=== PATIENT | male | born 1980 | race Caucasian/White ===

== ENCOUNTER 2021-06-17 15:28 | Emergency (ER) | payer OTHER ==
[~2021-06-17] VITALS: Ht 182.9 cm; Wt 118.1 kg
[2021-06-17] MEDS ORDERED: LIDOCAINE 1% Multi-Dose 20 ML VIAL. ONE (15:59)
[2021-06-17] MEDS ORDERED: LIDOCAINE 1% PF 30 ML VIAL. INJ ONE (16:00)
--- NOTE | 2021-06-17 16:02 | PHYS DOC ---
Adult General Chief Complaint Chief Complaint: LACERATION/AVULSION HPI HPI Patient is a 40-year-old male patient who presents to the ED today with a right eyebrow laceration. Patient states he was playing football with glasses on, he states he ran into his friends elbow with his head breaking his glasses. Denies any loss of consciousness or neck pain. Tetanus up-to-date. (SRIDHAR MIR APRN) Review of Systems Review of Systems Constitutional: Denies fever or chills [] Eyes: Denies change in visual acuity, redness, or eye pain [] Musculoskeletal: Denies back pain or joint pain [] Integument: Reports left eyebrow laceration Neurologic: Denies headache, focal weakness or sensory changes [] All other systems were reviewed and found to be within normal limits, except as documented in this note. (SRIDHAR MIR APRN) Current Medications Current Medications Current Medications Medications (Trade) Dose Ordered Sig/Florentin Start Time Stop Time Status Last Admin Dose Admin Lidocaine HCl 20 ml STK-MED ONCE 06/17/21 15:59 06/17/21 15:59 DC Lidocaine HCl (Lidocaine 1% Pf) 30 ml 1X ONCE 06/17/21 16:00 06/17/21 16:01 UNV (SRIDHAR MIR APRN) Physical Exam Physical Exam Constitutional: Well developed, well nourished, no acute distress, non-toxic appearance. [] Skin: Right upper eyebrow with a laceration approximately 4 cm long, bleeding is well controlled, no eye involvement. Back: No tenderness, no CVA tenderness. [] Extremities: No tenderness, no cyanosis, no clubbing, ROM intact, no edema. [] Neurologic: Alert and oriented X 3, normal motor function, normal sensory function, no focal deficits noted. Cranial nerves II through XII intact Psychologic: Affect normal, judgement normal, mood normal. [] (SRIDHAR MIR APRN) EKG EKG [] (SRIDHAR MIR APRN) Radiology/Procedures Radiology/Procedures Laceration/Wound Repair Laceration/Wound Repair : [] Wound Location: Left eyebrow Wound's Depth, Shape: Horizontal Wound Length (cm): Approximately 4 cm Wound Explored: clean Irrigated w/ Saline (ccs): 20 Betadine Prep?: Y Anesthesia: 1% of lidocaine Volume Anesthetic (ccs): Approximately 3 cc Wound Repaired With: Dissolvable gut Suture Size/Type: 4.0/interrupted sutures Number of Sutures: 8 Progress : Wound was left open to air (SRIDHAR MIR CRAFT RECRUITER) Heart Score C/O Chest Pain: N/A Risk Factors: Risk Factors: DM, Current or recent (<one month) smoker, HTN, HLP, family history of CAD, obesity. Risk Scores: Risk Factors: DM, Current or recent (<one month) smoker, HTN, HLP, family history of CAD, obesity. (SRIDHAR MIR CRAFT RECRUITER) Course & Med Decision Making Course & Med Decision Making Pertinent Labs and Imaging studies reviewed. (See chart for details) This is a 40-year-old male patient presented to the ED today with right eyebrow laceration that was closed by me as noted in procedures. Wound instructions and return precautions provided. Tetanus up-to-date (SRIDHAR MIR CRAFT RECRUITER) Course & Med Decision Making I was the Attending physician on the above date of service of this patient. This patient was evaluated, examined, treated, and dispositioned from the emergency department by the mid-level practitioner. Although I was working at the time , no assistance was requested. Electronically signed, Lucius Mensah DO (LUCIUS MENSAH DO) Roosevelt Disclaimer Roosevelt Disclaimer This electronic medical record was generated, in whole or in part, using a voice recognition dictation system. (SRIDHAR MIR ) Departure Departure: Impression: Primary Impression: Eyebrow laceration Additional Impression: Facial contusion Disposition: 01 HOME / SELF CARE / HOMELESS Condition: STABLE Referrals: PCP,NO (PCP) Follow-up in 1 to 2 weeks as needed with your doctor Patient Instructions: Facial Laceration, [id number] Additional Instructions: You have right eyebrow laceration that was closed with dissolvable stitches. You can shower and use your face, do not soak your face/laceration site. Please apply Neosporin to the area twice a day for 7 days. Monitor the area for any signs of infection including but not limited to increased redness, warmth, yellow drainage from the areas and return to the ED. Problem Qualifiers Primary Impression: Eyebrow laceration Encounter type: initial encounter Laterality: right Qualified Codes: S01.111A - Laceration without foreign body of right eyelid and periocular area, initial encounter Additional Impression: Facial contusion Encounter type: initial encounter Qualified Codes: S00.83XA - Contusion of other part of head, initial encounter SRIDHAR MIR APRN Jun 17, 2021 16:02 LUCIUS MENSAH DO Jun 28, 2021 06:30
[2021-06-17 16:03] VITALS: BP 125/64
== END 2021-06-17 16:48 | disposition home or self-care (01) ==
LOC: ER 15:28
DX: S01.111A Laceration without foreign body of right eyelid and periocular area, initial encounter (principal); W25.XXXA Contact with sharp glass, initial encounter; Y93.89 Activity, other specified; Y92.89 Other specified places as the place of occurrence of the external cause; Y99.8 Other external cause status
CPT/HCPCS: 12013; 12014; 99282-25